=== PATIENT | male | born 1970 | race Two or more races ===

== ENCOUNTER 2021-08-30 23:42 | Emergency (ER) | payer BC, OTHER ==
[~2021-08-30] VITALS: Ht 172.7 cm; Wt 86.2 kg
[2021-08-31 02:31] VITALS: BP 152/94
== END 2021-08-31 04:54 | disposition home or self-care (01) ==
LOC: ER 23:43
DX: S61.012A Laceration without foreign body of left thumb without damage to nail, initial encounter (principal); W01.110A Fall on same level from slipping, tripping and stumbling with subsequent striking against sharp glass, initial encounter; Y93.89 Activity, other specified; Y92.000 Kitchen of unspecified non-institutional (private) residence as the place of occurrence of the external cause; Y99.8 Other external cause status
CPT/HCPCS: 12002